=== PATIENT | female | born 1990 | race African-American/Black ===

== ENCOUNTER 2021-10-14 13:59 | Emergency (ER) | payer OTHER ==
[~2021-10-14] VITALS: Ht 152.4 cm; Wt 49.9 kg
--- NOTE | ~2021-10-14 | EMS ---
[place] [address] EMS Patient Care Report Name: KATERINA EISENBERG Room #: DEP SUSAN Daniel#: [id number] Admission: 10/14/21 Attend Phys: Discharge: 10/14/21 Date of : [birth year] Report #: [id number] THIS REPORT FOR: //name// Report Transmitted: 10/15/2021 09:35 EMS Care Summary [place], [place]/[facility] Incident [id number] @ 10/14/2021 13:31 Incident Location [address] [place] [address] Patient KATERINA EISENBERG Female, 30 Years 1990 Patient Address [address] [place] [address] Patient History Seizures, Patient Medications Divalproex Sodium, Chief Complaint SEIZURE Disposition Transported No Lights/[place] Dispatch Reason Convulsions/Seizure Transported To [facility] Narrative ARRIVED TO FIND PT LAYING SUPINE IN FRONT YARD. BYSTANDER STATES HE WITNESSED PT HAVE A SEIZURE LASTING APPROX 2 MINUTES. PT IS CURRENTLY POSTICTAL. PT MOVED TO COT, SECURED WITH STRAPS X2, LOADED WITHOUT INCIDENT. ALS ASSESSMENT VITALS OBTAINED. SEIZURE MEDICATIONS FOUND IN PT'S PURSE. DURING ASSESSMENT, PT REPEATEDLY TRIES TO REMOVE BP CUFF, O2 SENSOR, SEATBELTS. UPON STOPPING ASSESSMENT PT RESTS COMFORTABLY ON COT. IV WITHHELD FOR PT SAFETY, [place] [address] EMS Patient Care Report Name: KATERINA EISENBERG Room #: DEP [facility].#: [id number] Admission: 10/14/21 Attend Phys: Discharge: 10/14/21 Date of : [birth year] Report #: [id number] NOT REMOVE SEATBELT. ENROUTE, PT CONDITION UNCHANGED. ARRIVED. PT TAKEN INSIDE ON COT TO ER 2. PT MOVED TO BED WITH 4 PERSON SHEET MOVE RAILS RAISED X2. REPORT GIVEN TO NURSE, PT CARE TRANSFERRED. Initial Vitals @13:45P: 57,R: 16,BP: 114/62,Pain: 0/10,GCS: 13,Glucose: 77,SpO2: 99,Revised Trauma: 12, @13:50P: 92,R: 16,BP: 107/75,Pain: 0/10,GCS: 15,CO: 0,SpO2: 100,Revised Trauma: 12, Assessments @13:35MENTAL:Confused,SKIN:HEENT:Head/Face: No Abnormalities,Eyes: No Abnormalities,Neck/Airway: No Abnormalities,LUNG SOUNDS:General: No Abnormalities,Left Upper: No Abnormalities,Right Upper: No Abnormalities,Left Lower: No Abnormalities,Right Lower: No Abnormalities,ABDOMEN:General: No Abnormalities,Left Upper: No Abnormalities,Right Upper: No Abnormalities,Left Lower: No Abnormalities,Right Lower: No Abnormalities,PELVIS//GI:No Abnormalities,EXTREMITIES:Left Arm: No Abnormalities,Right Arm: No Abnormalities,Left Leg: No Abnormalities,Right Leg: No Abnormalities,PULSE:Radial: 2+ Normal,NEURO:Seizures, Impression Seizures Procedures @13:35 ALS Assessment Response: UnchangedSucceeded @13:40 IV Therapy - cc () Timeline 13:28,Call Received 13:28,Dispatch Notified 13:31,Dispatched 13:31,En Route 13:34,On Scene 13:35,At Patient 13:35,ALS Assessment,Response: UnchangedSucceeded, 13:40,IV Therapy - cc Site: , 13:43,Depart Scene 13:45,BP: 114/62 M,PULSE: 57,RR: 16 R,SPO2: 99 Ox,ETCO2: ,B,PAIN: 0,GCS: 13, 13:50,BP: 107/75 M,PULSE: 92,RR: 16 R,SPO2: 100 Ox,ETCO2: ,BG: ,PAIN: 0,GCS: 15, [facility] [address] [place] [address] EMS Patient Care Report Name: KATERINA EISENBERG Room #: DEP Fredy#: [id number] Admission: 10/14/21 Attend Phys: Discharge: 10/14/21 Date of : [birth year] Report #: [id number] 13:55,At Destination 14:05,Call Closed Disclaimer [email or web address] Copyright 2021 [email or web address] This EMS Care Summary contains data elements from the applicable legal record (which may be displayed differently). It is designed to provide pertinent information for the following purposes: continuity of care, clinical quality, and state data reporting. The complete legal record is available to ED staff and administrators of the receiving hospital in [facility]'s Patient Tracker. All data is provided "as is."
[~2021-10-14 13:59] MED LIST: NOHOMEMEDICATIONS; NORCO 5-325 TA1 EACH PO
[2021-10-14 14:33] LABS: HEMATOCRIT 38.6 % (37.0-47.0); HEMOGLOBIN 12.8 gm/dL (12.0-15.0); MCH 30.5 pg (26.0-34.0); MCHC 33.2 g/dL (28.0-37.0); MCV 91.8 fL (80.0-100.0); RBC 4.21 mil/uL (4.20-5.00); RDW 15.5 % (10.5-14.5); WBC 7.4 thou/uL (4.0-11.0)
[2021-10-14 14:42] LABS: CALCIUM 8.9 mg/dL (8.5-10.1); CREATININE 0.9 mg/dL (0.6-1.0); POTASSIUM 3.8 mmol/L (3.5-5.1)
[2021-10-14 14:48] LABS: ALBUMIN 3.5 g/dL (3.4-5.0); TOTAL BILIRUBIN 0.2 mg/dL (0.2-1.0); TOTAL PROTEIN 6.7 g/dL (6.4-8.2)
[2021-10-14 18:17] LABS: URINE BILIRUBIN NEGATIVE (Negative); URINE BLOOD TRACE (Negative); URINE CLARITY CLEAR; URINE COLOR YELLOW; URINE GLUCOSE-RANDOM* NEGATIVE (Negative); URINE KETONES NEGATIVE (Negative); URINE NITRITE-REFLEX NEGATIVE (Negative); URINE PROTEIN (DIPSTICK) NEGATIVE (Negative); URINE UROBILINOGEN 0.2 E.U./dl (0.2-1.0)
[2021-10-14 18:22] LABS: URINE LEUKOCYTES-REFLEX 1+ (Negative)
[2021-10-14 18:27] LABS: AMP/METHAMP Negative (Negative); BARBITURATES Negative (Negative); BENZODIAZEPINES Negative (Negative); COCAINE Negative (Negative); METHADONE Negative (Negative); OPIATES Negative (Negative); PCP Negative (Negative)
[2021-10-14 18:38] LABS: CASTS None Seen /LPF (None Seen); SQUAMOUS >10 Many /LPF (0-3)
[2021-10-14 18:39] LABS: URINE RBC 1-2 Rare /HPF (NONE SEEN); URINE WBC-REFLEX 0-5 Rare /HPF (0-5)
[2021-10-14 18:40] LABS: BACTERIA-REFLEX 1-9 Few /HPF (None Seen); CRYSTALS None Seen /LPF (None Seen)
[2021-10-14 18:43] VITALS: BP 106/56
--- NOTE | 2021-10-15 07:47 | EKG ---
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: ABRAM : 1990 Requested By: Sung Moore Order Number: [id number] MD: Emmanuel Gunn Measurements Intervals [place] Rate: 75 P: -9 WI: 151 QRS: 44 QRSD: 88 T: 58 QT: 386 QTc: 432 Interpretive Statements Sinus rhythm Nonspecific T abnormalities, lateral leads No previous ECG available for comparison Electronically Signed On 10-15-2021 7:47:31 [employer] by Emmanuel Gunn [email or web address] <ELECTRONICALLY SIGNED> By: Emmanuel Gunn MD, [facility] 10/15/21 0747 [id number] Emmanuel Gunn MD, FACC /EPI
== END 2021-10-14 18:43 | disposition home or self-care (01) ==
LOC: ER
PROVIDERS: Emergency Medicine
DX: R51.9 Headache, unspecified (principal); R56.9 Unspecified convulsions